=== PATIENT | female | born 1965 | race Caucasian/White ===

== ENCOUNTER 2024-05-27 06:16 | Day surgery (SDC) | payer BC, SELFPAY ==
[2024-05-22 09:44] VITALS: BMI 28.9
[2024-05-22 10:45] LABS: % Basophils 0.4 % (0-2); % Eosinophils 2.5 % (0-6); % Immature Granulocytes 0.3 % (0-0.5); % Lymphocytes 38.3 % (20.5-51.1); % Monocytes 4.2 % (1.7-9.3); % Neutrophils 54.3 % (42.2-75.2); Absolute Eosinophils 0.2 10^3/uL (0-0.7); Absolute Lymphocytes 2.9 10^3/uL (1.2-3.4); Absolute Monocytes 0.3 10^3/uL (0.1-0.6); Absolute Neutrophils 4.1 10^3/uL (1.4-6.5); Hematocrit 39.9 % (37.0-47.0); Hemoglobin 13.4 g/dL (12.0-16.0); Mean Corp Hgb Conc. 33.6 g/dL (33.0-37.0); Mean Corpuscular Hgb 29.7 pg (27.0-31.0); Mean Corpuscular Volume 88.5 fL (81.0-99.0); Mean Platelet Volume 9.7 fL (7.4-10.4); Nucleated Red Blood Cells % 0 %; Platelet Count 230 10^3/uL (130-400); Red Blood Cell Count 4.51 10^6/uL (4.20-5.40); Red Cell Dist. Width 13.2 % (11.5-14.5); White Blood Cell Count 7.6 10^3/uL (4.8-10.8)
[2024-05-22 11:09] LABS: Blood Urea Nitrogen 32 mg/dl (7-17); Carbon Dioxide 26 mmol/L (22-30); Chloride 103 mmol/L (98-107); Estimated Creatinine Clearance 88 ml/min; Glucose 92 mg/dl (70-99); Potassium 4.4 mmol/L (3.5-5.1); Sodium 142 mmol/L (135-145); eGFR > 60.00
[2024-05-27] VITALS (15 sets, daily range): BP systolic 86–147; BP diastolic 61–79; BMI 28.9
[2024-05-27] MEDS: TYLENOL 1000 MG PO (09:51)
[2024-05-27] MEDS: CELEBREX 200 MG PO (09:51)
--- NOTE | 2024-05-27 11:55 | PTCARENOTE ---
Per Dr. Ramos Patient may wear her extended contact lenses into the OR.
--- NOTE | 2024-05-27 12:13 | PTCARENOTE ---
Per Laure Aleg[facility] he requested that the patient remove her daily throw away contact lenses.
[2024-05-27] MEDS: DILAUDID 0.5 MG IV (13:36)
[2024-05-27] MEDS: DILAUDID 0.25 MG IV (13:49)
[2024-05-27] MEDS: ROXICODONE 5 MG PO (15:41)
== END 2024-05-27 16:15 | disposition home or self-care (01) ==
LOC: SDS 06:16
PROVIDERS: ATTENDING PHYSICIAN Specialist; OTHER PHYSICIAN Internal Medicine Rheumatology
DX: S83.281A Other tear of lateral meniscus, current injury, right knee, initial encounter (principal); X58.XXXA Exposure to other specified factors, initial encounter; M22.41 Chondromalacia patellae, right knee; M70.961 Unspecified soft tissue disorder related to use, overuse and pressure, right lower leg
CPT/HCPCS: 29881; 11403; 36415; 80048; 85025; 93005